=== PATIENT | male | born 1975 | race Caucasian/White ===

== ENCOUNTER → 2018-08-04 | Outpatient (CLI) | payer BC ==
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
== END | disposition home or self-care (01) ==
LOC: PMG 09:23
DX: M79.644 Pain in right finger(s) (principal)
CPT/HCPCS: 73120

== ENCOUNTER → 2018-12-05 | Outpatient (CLI) | payer BC ==
--- NOTE | 2018-12-05 14:01 | RAD ---
EXAM: Left knee, 2 views. HISTORY: Pain. COMPARISON: None. FINDINGS: 2 views left knee are obtained. There is internal fixation of a tibial diaphyseal fracture within intramedullary simone, partially included on the [id number]. There is a healed fibular diaphyseal fracture, also partially included on the [id number]. There is no acute fracture, dislocation or subluxation. There is no joint effusion. IMPRESSION: 1. Healed internally fixated tibial diaphyseal fracture and healed fibular diaphyseal fracture, partially included on the [id number]. 2. No acute osseous finding. Electronically signed by: Mary Hughes MD (12/05/2018 1:57 PM) [facility]
== END | disposition home or self-care (01) ==
LOC: PMG 09:13
PROVIDERS: ATTEND Physician Assistant
DX: M25.562 Pain in left knee (principal)
CPT/HCPCS: 73560

== ENCOUNTER → 2020-11-17 | Outpatient (CLI) | payer BC ==
--- NOTE | 2020-11-17 19:44 | RAD ---
XR HIP (WITH OR WITHOUT PELVIS) 1 VIEW, XR FEMUR_RIGHT 11/17/2020 6:57 PM INDICATION: Right hip pain COMPARISON: None available. TECHNIQUE: AP view of the pelvis with dedicated view of each hip as well as 4 views of the right fem ur are provided. FINDINGS/ IMPRESSION: There is no acute fracture or dislocation. Right femur intramedullary simone and screw are present. Ther e is heterotopic ossification along the greater trochanter. There is no lucency surrounding the hardw are to suggest hardware failure. Left hip is intact. Superior and inferior pubic rami are intact. Pub ic symphysis and sacroiliac joints are well aligned. Joint spaces are maintained. Bone mineralization is within normal limits. Regional soft tissues are within normal limits. There is no soft tissue gas or osseous erosion. No radiopaque foreign body. Electronically signed by: Alma Burnett MD (11/17/2020 7:41 PM) [facility]
== END ==
LOC: PMG 18:49
PROVIDERS: ATTEND Nurse Practitioner Family
DX: M25.551 Pain in right hip (principal)
CPT/HCPCS: 73521; 73552

== ENCOUNTER 2021-07-24 09:39 | Emergency (ER) | payer BC ==
[~2021-07-24] VITALS: Ht 162.6 cm; Wt 81.0 kg
[2021-07-24 09:49] VITALS: BP 146/82
[2021-07-24] MEDS: ORPHENADRINE CITRATE 60 MG/2 ML VIAL. IM ONE (10:43)
[2021-07-24] MEDS: LIDOCAINE (700MG/PATCH) PATCH. TD SCH (10:43)
[2021-07-24] MEDS: KETOROLAC 60 MG/2 ML VIAL. IM ONE (10:44)
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
[2021-07-24] MEDS ORDERED: HYDR-2769 PO (11:40)
[2021-07-24] MEDS ORDERED: ORPH-16 PO (11:40)
== END 2021-07-24 12:10 | disposition home or self-care (01) ==
LOC: ER 09:39
DX: S81.002D Unspecified open wound, left knee, subsequent encounter (principal); M54.59 Other low back pain; G89.29 Other chronic pain; Z88.5 Allergy status to narcotic agent; V89.2XXD Person injured in unspecified motor-vehicle accident, traffic, subsequent encounter
CPT/HCPCS: 96372; 99284; J1885; J2360

== ENCOUNTER → 2021-08-21 | Outpatient (CLI) | payer OTHER, BC ==
[2021-07-24 09:49] VITALS: BP 146/82
[~2021-08-21] MED LIST: HYDR-2769 PO; ORPH-16 PO
--- NOTE | 2021-08-21 09:48 | RAD ---
XR CHEST 2V INDICATION: SOA x3WKS, NON SMOKER HX PNEUMONIA . COMPARISON STUDY: None. FINDINGS: Lungs: Normal lung volume. No pulmonary mass or consolidation. The tracheobronchial tree and hilar st ructures are normal. Pleura: No pleural effusion or pneumothorax. Heart and Mediastinum: The cardiomediastinal silhouette is normal. The great vessels of the thorax ar e normal. Bones and Soft Tissues: Right convex thoracic curvature. IMPRESSION: No acute cardiopulmonary process. Electronically signed by: Rafiq Lan MD (08/21/2021 9:46 AM) [id number]
== END ==
LOC: RAD 09:10
PROVIDERS: ATTEND Physician Assistant
DX: R06.00 Dyspnea, unspecified (principal)
CPT/HCPCS: 71046